=== PATIENT | male | born 1985 | race Caucasian/White ===

== ENCOUNTER 2020-09-24 12:28 | Emergency (ER) | payer MEDICAID ==
[~2020-09-24] VITALS: Ht 167.6 cm; Wt 60.8 kg
[2020-09-24 12:38] VITALS: BP 143/85
[2020-09-24] MEDS ORDERED: DOXY-487 PO (13:19)
--- NOTE | 2020-09-24 13:25 | NUR ---
LAB AT BEDSIDE
[2020-09-24 13:48] VITALS: BP 143/85
--- NOTE | 2020-09-24 13:48 | NUR ---
Patient discharged with v/s stable. Written and verbal after care instructions given and explained. Patient alert, oriented and verbalized understanding of instructions. Ambulatory with steady gait. All questions addressed prior to discharge. ID band removed. Patient advised to follow up with PMD. Rx of DOXYCYCLINE HYCLATE given. Patient educated on indication of medication including possible reaction and side effects. Opportunity to ask questions provided and answered.
[2020-09-25 09:09] LABS: RAPID PLASMA REAGIN NON-REACTIVE (Non Reactiv)
--- NOTE | 2020-09-27 16:54 | NUR ---
late entry---- lab results back came back positive for Chlamydia trachomatis. Dr. Brandt made aware of UC. no changes in order per Dr. Brandt. results recorded and filed to discrepancy binder.
== END 2020-09-24 13:48 | disposition home or self-care (01) ==
LOC: MED 12:28
DX: Z11.3 Encounter for screening for infections with a predominantly sexual mode of transmission (principal)
CPT/HCPCS: 36415; 81002; 86592; 87491; 99283

== ENCOUNTER 2020-11-11 11:00 | Emergency (ER) | payer MEDICAID ==
[~2020-11-11] VITALS: Ht 167.6 cm; Wt 65.8 kg
[~2020-11-11 11:00] MED LIST: DOXY-487 PO
[2020-11-11 11:11] VITALS: BP 142/78
--- NOTE | 2020-11-11 11:14 | NUR ---
PT TO AWAIT IN LOBBY
[2020-11-11 11:55] LABS: BILIRUBIN,URINE NEGATIVE (NEGATIVE); BLOOD, URINE TRACE-I (NEGATIVE); COLOR,URINE YELLOW (YELLOW); LEUKOCYTE ESTERASE ,URINE 2+ (NEGATIVE); NITRITE, URINE NEGATIVE (NEGATIVE); UGLUCOSE NEGATIVE (NEGATIVE)
[2020-11-11 12:15] LABS: APPEARANCE,URINE HAZY (CLEAR); RBC,URINE 0-5 /HPF (0-5); WBC,URINE 20-60 /HPF (0-5)
[2020-11-11] MEDS ORDERED: DOXYCYCLINE 100 MG CAP PO STA (12:23)
[2020-11-11] MEDS ORDERED: cefTRIAXone 500 MG VIAL IM ONE (12:25)
[2020-11-11] MEDS ORDERED: DOXY-690 PO (12:37)
[2020-11-11] MEDS ORDERED: PYR100 PO (12:37)
[2020-11-11] MEDS ORDERED: LIDOCAINE MPF 1% 5 ML ONE (12:43)
--- NOTE | 2020-11-11 13:07 | NUR ---
Patient discharged with v/s stable. Written and verbal after care instructions given and explained. Patient alert, oriented and verbalized understanding of instructions. Ambulatory with steady gait. All questions addressed prior to discharge. ID band removed. Patient advised to follow up with PMD. Rx of Doxycycline, Pyridium given. Patient educated on indication of medication including possible reaction and side effects. Opportunity to ask questions provided and answered.
== END 2020-11-11 13:07 | disposition home or self-care (01) ==
LOC: MED 11:00
DX: A64 Unspecified sexually transmitted disease (principal)
CPT/HCPCS: 36415; 81001; 87086; 87491; 96372; 99283; J0696; J2001

== ENCOUNTER 2021-10-30 20:51 | Emergency (ER) | payer MEDICAID ==
[~2021-10-30] VITALS: Ht 167.6 cm; Wt 68.0 kg
[~2021-10-30 20:51] MED LIST changes: +DOXY-690 PO; +PYR100 PO
[2021-10-30 21:10] VITALS: BP 124/63
--- NOTE | 2021-10-30 21:13 | NUR ---
TO LOBBY A/W BED AMBULATORY
--- NOTE | 2021-10-30 22:25 | NUR ---
[facility] ASSESSING PT IN [facility]
[2021-10-30] MEDS ORDERED: AMOX1TAB8 PO (22:40)
[2021-10-30 22:50] VITALS: BP 124/63
--- NOTE | 2021-10-30 23:03 | NUR ---
Patient discharged with v/s stable. Written and verbal after care instructions given and explained. Patient verbalized understanding. Ambulatory with steady gait. All questions addressed prior to discharge. Advised to follow up with PMD. . Patient alert, oriented and verbalized understanding of instructions. Ambulatory with steady gait. All questions addressed prior to discharge. ID band removed. Patient advised to follow up with PMD. Rx of AMOXICILLIN given. . Opportunity to ask questions provided and answered.
== END 2021-10-30 22:50 | disposition home or self-care (01) ==
LOC: MED 20:51
DX: Z48.00 Encounter for change or removal of nonsurgical wound dressing (principal); Z90.49 Acquired absence of other specified parts of digestive tract
CPT/HCPCS: 99283

== ENCOUNTER 2021-11-18 21:25 | Emergency (ER) | payer MEDICAID ==
[~2021-11-18] VITALS: Ht 167.6 cm; Wt 58.1 kg
[~2021-11-18 21:25] MED LIST changes: +AMOX1TAB8 PO
[2021-11-18 21:38] VITALS: BP 105/58
[2021-11-19 00:36] VITALS: BP 111/67
== END 2021-11-19 01:25 | disposition home or self-care (01) ==
LOC: MED 21:25
DX: S31.119D Laceration without foreign body of abdominal wall, unspecified quadrant without penetration into peritoneal cavity, subsequent encounter (principal); Z79.899 Other long term (current) drug therapy; Z98.890 Other specified postprocedural states; X58.XXXD Exposure to other specified factors, subsequent encounter
CPT/HCPCS: 99281